=== PATIENT | female | born 1980 | race American Indian/Alaskan Native ===

== ENCOUNTER 2018-08-29 15:19 | Emergency (ER) | payer SELFPAY ==
[2018-08-29 15:29] VITALS: BP 153/102
[2018-08-29] MEDS ORDERED: BACTRIM DS PO ONE (17:01)
--- NOTE | 2018-08-29 17:06 | Emergency Department Report ---
ED Fever HPI - General Chief Complaint: Fever Stated Complaint: BITE/VOMITING/RASH Time Seen by Provider: 08/29/18 16:12 Source: patient - History of Present Illness Initial Comments: Ms. Alexander is a healthy 38 yo female who presents with infected bug bite. She felp a pinch last night. Now had surrounding redness. Timing/Duration: yesterday Fever Severity/Quality: subjective Associated Symptoms: headache, nausea/vomiting ED Review of Systems ROS: Stated complaint: BITE/VOMITING/RASH Other details as noted in HPI Constitutional: fever, malaise Respiratory: denies: cough Cardiovascular: denies: chest pain Gastrointestinal: nausea, vomiting. denies: abdominal pain Skin: rash Neurological: headache ED Past Medical Hx - Past Medical History Previous Medical History?: Yes Additional medical history: diverticulitis - Surgical History Past Surgical History?: Yes Additional Surgical History: C section - Social History Smoking Status: Current Every Day Smoker Substance Use Type: None - Medications Home Medications: Home Medications Medication Instructions Recorded Confirmed Last Taken Type Sulfamethoxazole/Trimethoprim 1 each PO BID 10 Days #20 tablet 08/29/18 Unknown Rx [Bactrim DS TAB] ED Physical Exam - General Limitations: No Limitations General appearance: alert, in no apparent distress - Head Head exam: Present: atraumatic, normocephalic - Eye Eye exam: Present: normal appearance - ENT ENT exam: Present: mucous membranes moist - Neck Neck exam: Present: normal inspection. Absent: tenderness, meningismus - Respiratory Respiratory exam: Present: normal lung sounds bilaterally. Absent: respiratory distress, wheezes, rales, rhonchi - Cardiovascular Cardiovascular Exam: Present: regular rate, normal rhythm, normal heart sounds. Absent: systolic murmur, diastolic murmur, rubs, gallop - GI/Abdominal GI/Abdominal exam: Present: soft, normal bowel sounds. Absent: distended, tenderness, guarding, rebound - Extremities Exam Extremities exam: Present: normal inspection - Back Exam Back exam: Present: normal inspection - Neurological Exam Neurological exam: Present: alert, oriented X3 - Psychiatric Psychiatric exam: Present: normal affect, normal mood - Skin Skin exam: Present: warm. Absent: rash - Other Other exam information: pustule at umbilicus, surrounding redness 5 cm diameter ED Course Vital Signs 08/29/18 08/29/18 15:26 16:43 Temperature 98.7 F Pulse Rate 141 H 98 H Respiratory 18 18 Rate Blood Pressure 153/102 O2 Sat by Pulse 97 99 Oximetry ED Medical Decision Making - Medical Decision Making cellulitis possibly due to infected bug bite repeat HR 98 bpm as documented per nurse and according to my exam, suspect HR 141 bpm was in err Critical care attestation.: If time is entered above; I have spent that time in minutes in the direct care of this critically ill patient, excluding procedure time. ED Disposition Clinical Impression: Cellulitis Disposition: DC- TO HOME OR SELFCARE Is pt being admited?: No Does the pt Need Aspirin: No Condition: Stable Instructions: Cellulitis (ED) Prescriptions: Sulfamethoxazole/Trimethoprim [Bactrim DS TAB] 1 each PO BID 10 Days #20 tablet Referrals: [facility] [Outside] - 3-5 Days
[2018-08-29] MEDS ORDERED: MOTRIN PO ONE (17:09)
[2018-08-29] MEDS ORDERED: MOTRIN ONE (17:12)
== END 2018-08-29 17:15 | disposition home or self-care (01) ==
LOC: ED 15:19
DX: L03.311 Cellulitis of abdominal wall (principal); F17.200 Nicotine dependence, unspecified, uncomplicated; Z91.041 Radiographic dye allergy status
CPT/HCPCS: 99282